=== PATIENT | female | born 1990 ===

== ENCOUNTER 2022-10-17 17:51 | Observation (INO) | payer BC, SELFPAY ==
[2022-10-17] MEDS ORDERED: fentaNYL 50 mcg/mL 1 mL Vial ONE ×2 (18:24→19:09)
[2022-10-17 18:32] LABS: #Basophils 0.1 10x3/uL (0.0-0.2); #Eosinphils 0.3 10x3/uL (0.0-0.5); #Monocytes 0.4 10x3/uL (0.0-1.1); %Basophils 1.2 % (0.0-2.0); %Eosinophils 4.8 % (0.0-6.0); %Lymphocytes 38.1 % (18.0-47.0); %Monocytes 6.1 % (0.0-10.0); %Neutrophils 49.5 % (40.0-75.0); Hemoglobin 11.9 g/dL (12.0-15.5); Mean Corpuscular Hemoglobin 29.8 pg (27.0-33.0); Mean Corpuscular Volume 90.3 fl (81.6-98.3); Mean Platelet Volume 10.7 fl (7.4-10.4); Platelet Count 336 10x3/uL (150-450); RBC Distribution Width 13.6 % (11.5-14.5)
[2022-10-17 18:42] LABS: ALT (SGPT) 14 U/L (8-55); AST (SGOT) 22 U/L (5-34); Alkaline Phosphatase 48 U/L (40-110); Anion Gap 12 mmol/L (10-20); BUN (Urea Nitrogen) 7 mg/dL (7.0-18.7); Bilirubin, Total 0.5 mg/dL (0.2-1.2); Calc. Creatinine Clearance 0 mL/min (70-130); Carbon Dioxide 20 mmol/L (22-29); Chloride 107 mmol/L (98-107); Estimated GFR 98; Globulin 4.2 g/dL (2.4-3.5); Glucose 89 mg/dL (70-105); Potassium 4.1 mmol/L (3.5-5.1); Protein, Total 8.2 g/dL (6.0-8.3); Sodium 135 mmol/L (136-145)
[2022-10-17] MEDS ORDERED: Ondansetron PF 4 MG/2 ML Vial ONE (19:58)
[2022-10-17] MEDS ORDERED: Morphine 4 MG/ML VIAL ONE (19:58)
[2022-10-17] MEDS ORDERED: Ondansetron PF 4 MG/2 ML Vial IVP PRN (21:24)
[2022-10-17 23:13] LABS: #Basophils 0.1 10x3/uL (0.0-0.2); #Eosinphils 0.2 10x3/uL (0.0-0.5); #Monocytes 0.5 10x3/uL (0.0-1.1); #Neutrophils 4.9 10x3/uL (1.5-8.4); %Eosinophils 2.1 % (0.0-6.0); %Lymphocytes 26.6 % (18.0-47.0); %Monocytes 5.9 % (0.0-10.0); %Neutrophils 64.1 % (40.0-75.0); Mean Corpuscular HGB CONC 33.8 g/dL (32.0-36.0); Mean Corpuscular Hemoglobin 29.8 pg (27.0-33.0); Mean Corpuscular Volume 88.1 fl (81.6-98.3); Platelet Count 305 10x3/uL (150-450); RBC Distribution Width 13.4 % (11.5-14.5); Red Blood Cell (RBC) Count 3.69 10x6/uL (3.90-5.03); White Blood Cell (WBC) Count 7.6 10x3/uL (3.5-10.5)
[2022-10-18] MEDS ORDERED: Morphine 2 MG/ML VIAL SLOW IVP PRN (00:14)
[2022-10-18] MEDS ORDERED: Lactated Ringer's 1,000 ML IV SCH (00:30)
[2022-10-18] MEDS ORDERED: Morphine 2 MG/ML VIAL ONE (00:41)
[2022-10-18 06:20] LABS: Hemoglobin 10.4 g/dL (12.0-15.5)
[2022-10-18 08:05] VITALS: BP 120/66; TEMP 98.5
== END 2022-10-18 09:39 | disposition home or self-care (01) ==
LOC: CSHERS 17:51 → CSHERHOLD 21:55 → INTOOBSV 21:55
PROVIDERS: ADMIT Obstetrics & Gynecology; ATTEND Student in an Organized Health Care Education/Training Program
DX: O03.9 Complete or unspecified spontaneous abortion without complication (principal); N83.209 Unspecified ovarian cyst, unspecified side
CPT/HCPCS: 36415; 76856; 80053; 84702; 85014; 85018; 85025; 86900; 86901; 96361; 96374; 96376; J2270; J2272; J2405; J3010; J7120